=== PATIENT | male | born 1995 | race Caucasian/White ===

== ENCOUNTER 2018-02-03 20:20 | Emergency (ER) | payer BC ==
--- NOTE | 2018-02-03 20:34 | ER Report ---
History and Physical Time Seen By MD: 20:33 Hx. of Stated Complaint: PT STATES THAT HE WOKE UP THIS AM FEELING ILL. STARTED WITH DIARRHEA AND PROGRESSED TO VOMITING. TONIGHT HE HAS SOME SHARP PAIN IN HIS CHEST, DIARRHEA HAS RESOLVED, LAST VOMITED AT 1730. HPI/ROS CHIEF COMPLAINT: Abdominal pain chest pain HISTORY OF PRESENT ILLNESS: 20-year-old male patient presents to emergency room with complaint of abdominal pain and chest pain. Patient states this been going on since morning. States he woke up this morning he was having some abdominal pain. He had several bouts of diarrhea. He states the diarrhea resolved and then he started vomiting. Patient states that he's not been able to keep anything down other than small sips of water. Patient states that he felt feverish about 9:00 this evening and took 800 mg of ibuprofen. He has not taken any other medication today. Patient denies any shortness of breath. REVIEW OF SYSTEMS: Respiratory: No cough, no dyspnea. Cardiovascular: As noted above. Gastrointestinal: As noted above Musculoskeletal: No back pain. Allergies: Uncoded Allergies: mint (Allergy, Intermediate, throat swelling, 02/03/18) Home Meds Active Scripts Ondansetron (ZOFRAN ODT) 4 Mg Tab.rapdis, 4 MG PO Q6H Y for NAUSEA/VOMITING, # 20 TAB.ANNA Prov:DENISE CISSE 02/03/18 Past Medical/Surgical History Patient has a past medical history of urethral scar tissue, alcohol use. Patient has surgical history of urethral surgery. Reviewed Nurses Notes: Yes Hx Substance Use Disorder: No Hx Alcohol Use: Yes (SOCIAL DRINKER) Constitutional Vital Sign - Last 24 Hours 02/03/18 02/03/18 02/03/18 02/03/18 20:28 20:30 20:45 21:00 Temp 99.0 Pulse 101 104 96 97 Resp 16 14 12 16 B/P (MAP) 116/89 117/79 (92) 114/77 (89) Pulse Ox 94 94 95 92 O2 Delivery Room Air 02/03/18 02/03/18 02/03/18 02/03/18 21:21 21:30 21:45 22:00 Pulse 98 95 100 Resp 13 21 34 B/P (MAP) 116/76 (89) 129/87 (101) Pulse Ox 90 93 93 4/11/02/03/18 02/03/18 02/03/18 22:15 22:30 22:45 23:00 Pulse 98 93 95 92 Resp 9 17 23 7 B/P (MAP) 120/84 (96) Pulse Ox 92 92 92 91 Physical Exam General Appearance: The patient is alert, has no immediate need for airway protection and no current signs of toxicity. Respiratory: Chest is non tender, lungs are clear to auscultation. Cardiac: regular rate and rhythm Gastrointestinal: Abdomen is soft and tender, no masses, bowel sounds hypoactive. Musculoskeletal: Neck: Neck is supple and non tender. Extremities have full range of motion and are non tender. Skin: No rashes or lesions. DIFFERENTIAL DIAGNOSIS: After history and physical exam differential diagnosis was considered for nausea and vomiting including but not limited to gastroenteritis, gastritis, appendicitis, and medication side effect. Medical Decision Making Data Points Result Diagram: 02/03/18203702/03/182037 Laboratory Hematology Test 02/03/18 20:38 02/03/18 21:37 Red Blood Count 5.70 M/uL (4.00-5.60) Mean Corpuscular Volume 90.2 fL (80.0-96.0) Mean Corpuscular Hemoglobin 32.0 pg (26.0-33.0) Mean Corpuscular Hemoglobin Concent 35.4 g/dL (32.0-36.0) Red Cell Distribution Width 12.8 % (11.5-14.5) Mean Platelet Volume 8.4 fL (7.2-11.1) Neutrophils (%) (Auto) 90.0 % (39.4-72.5) Lymphocytes (%) (Auto) 3.3 % (17.6-49.6) Monocytes (%) (Auto) 5.7 % (4.1-12.4) Eosinophils (%) (Auto) 0.4 % (0.4-6.7) Basophils (%) (Auto) 0.6 % (0.3-1.4) Nucleated RBC Relative Count (auto) 0.0 /100WBC Neutrophils # (Auto) 11.4 K/uL (2.0-7.4) Lymphocytes # (Auto) 0.4 K/uL (1.3-3.6) Monocytes # (Auto) 0.7 K/uL (0.3-1.0) Eosinophils # (Auto) 0.1 K/uL (0.0-0.5) Basophils # (Auto) 0.1 K/uL (0.0-0.1) Nucleated RBC Absolute Count (auto) 0.00 K/uL Sodium Level 140 mmol/L (137-145) Potassium Level 3.4 mmol/L (3.5-5.0) Chloride Level 102 mmol/L (98-107) Carbon Dioxide Level 20 mmol/L (22-30) Blood Urea Nitrogen 19 mg/dl (9-21) Creatinine 0.90 mg/dl (0.66-1.25) Glomerular Filtration Rate Calc > 60.0 Random Glucose 117 mg/dl (75-110) Calcium Level 9.3 mg/dl (8.4-10.2) Total Bilirubin 1.5 mg/dl (0.2-1.3) Aspartate Amino Transf (AST/SGOT) 22 U/L (0-35) Alanine Aminotransferase (ALT/SGPT) 26 U/L (0-56) Alkaline Phosphatase 106 U/L (0-126) Troponin I < 0.012 ng/ml C-Reactive Protein 1.2 mg/dl (<1.0) Total Protein 7.5 gm/dl (6.3-8.2) Albumin 4.4 g/dl (3.5-5.0) Amylase Level 72 U/L (0-110) Lipase 38 U/L (23-300) Urine Color Yellow Urine Clarity Clear Urine pH 5.0 pH (4.8-9.5) Urine Specific [place] 1.029 Urine Protein Negative mg/dL (NEGATIVE) Urine Glucose (UA) Negative mg/dL (NEGATIVE) Urine Ketones 80 mg/dL (NEGATIVE) Urine Blood Negative (NEGATIVE) Urine Nitrite Negative (NEGATIVE) Urine Bilirubin Negative (NEGATIVE) Urine Urobilinogen Negative mg/dL (0.2-1.9) Urine Leukocyte Esterase Negative (NEGATIVE) Urine RBC <1 /HPF (0-2/HPF) Urine WBC 1 /HPF (0-5/HPF) Urine Squamous Epithelial Cells Few /LPF (</=FEW) Urine Bacteria Negative /HPF (NONE-FEW) Urine Mucus Few /HPF (NONE-FEW) Chemistry Test 02/03/18 20:38 02/03/18 21:37 White Blood Count 12.7 k/uL (4.5-11.0) Red Blood Count 5.70 M/uL (4.00-5.60) Hemoglobin 18.2 g/dL (14.0-18.0) Hematocrit 51.4 % (42.0-52.0) Mean Corpuscular Volume 90.2 fL (80.0-96.0) Mean Corpuscular Hemoglobin 32.0 pg (26.0-33.0) Mean Corpuscular Hemoglobin Concent 35.4 g/dL (32.0-36.0) Red Cell Distribution Width 12.8 % (11.5-14.5) Platelet Count 237 K/uL (150-450) Mean Platelet Volume 8.4 fL (7.2-11.1) Neutrophils (%) (Auto) 90.0 % (39.4-72.5) Lymphocytes (%) (Auto) 3.3 % (17.6-49.6) Monocytes (%) (Auto) 5.7 % (4.1-12.4) Eosinophils (%) (Auto) 0.4 % (0.4-6.7) Basophils (%) (Auto) 0.6 % (0.3-1.4) Nucleated RBC Relative Count (auto) 0.0 /100WBC Neutrophils # (Auto) 11.4 K/uL (2.0-7.4) Lymphocytes # (Auto) 0.4 K/uL (1.3-3.6) Monocytes # (Auto) 0.7 K/uL (0.3-1.0) Eosinophils # (Auto) 0.1 K/uL (0.0-0.5) Basophils # (Auto) 0.1 K/uL (0.0-0.1) Nucleated RBC Absolute Count (auto) 0.00 K/uL Glomerular Filtration Rate Calc > 60.0 Calcium Level 9.3 mg/dl (8.4-10.2) Total Bilirubin 1.5 mg/dl (0.2-1.3) Aspartate Amino Transf (AST/SGOT) 22 U/L (0-35) Alanine Aminotransferase (ALT/SGPT) 26 U/L (0-56) Alkaline Phosphatase 106 U/L (0-126) Troponin I < 0.012 ng/ml C-Reactive Protein 1.2 mg/dl (<1.0) Total Protein 7.5 gm/dl (6.3-8.2) Albumin 4.4 g/dl (3.5-5.0) Amylase Level 72 U/L (0-110) Lipase 38 U/L (23-300) Urine Color Yellow Urine Clarity Clear Urine pH 5.0 pH (4.8-9.5) Urine Specific [place] 1.029 Urine Protein Negative mg/dL (NEGATIVE) Urine Glucose (UA) Negative mg/dL (NEGATIVE) Urine Ketones 80 mg/dL (NEGATIVE) Urine Blood Negative (NEGATIVE) Urine Nitrite Negative (NEGATIVE) Urine Bilirubin Negative (NEGATIVE) Urine Urobilinogen Negative mg/dL (0.2-1.9) Urine Leukocyte Esterase Negative (NEGATIVE) Urine RBC <1 /HPF (0-2/HPF) Urine WBC 1 /HPF (0-5/HPF) Urine Squamous Epithelial Cells Few /LPF (</=FEW) Urine Bacteria Negative /HPF (NONE-FEW) Urine Mucus Few /HPF (NONE-FEW) Urinalysis Test 02/03/18 21:37 Urine Color Yellow Urine Clarity Clear Urine pH 5.0 pH (4.8-9.5) Urine Specific [place] 1.029 Urine Protein Negative mg/dL (NEGATIVE) Urine Glucose (UA) Negative mg/dL (NEGATIVE) Urine Ketones 80 mg/dL (NEGATIVE) Urine Blood Negative (NEGATIVE) Urine Nitrite Negative (NEGATIVE) Urine Bilirubin Negative (NEGATIVE) Urine Urobilinogen Negative mg/dL (0.2-1.9) Urine Leukocyte Esterase Negative (NEGATIVE) Urine RBC <1 /HPF (0-2/HPF) Urine WBC 1 /HPF (0-5/HPF) Urine Squamous Epithelial Cells Few /LPF (</=FEW) Urine Bacteria Negative /HPF (NONE-FEW) Urine Mucus Few /HPF (NONE-FEW) EKG/Imaging EKG Interpretation 12 lead EKG: Rhythm: normal sinus rhythm with a ventricular rate of 100 bpm. [place]: normal QRS: normal ST segments: normal Imaging ACUTE ABDOMEN SERIES 3 VIEW HISTORY: Abdominal pain, epigastric, for one day. Diarrhea and fever. COMPARISON: None. TECHNIQUE: PA upright view of the chest, AP supine and AP upright views of the abdomen. Chest: The lungs are clear. The cardiac and mediastinal silhouettes are within normal limits. Bones and soft tissues are unremarkable. Abdomen: The distribution of bowel gas is normal, with bowel in all four quadrants as well as centrally. There are few nonspecific air-fluid levels. No free air. No dilated loops of bowel. No acute osseous abnormality. IMPRESSION: 1. No acute cardiopulmonary process. 2. Unremarkable bowel gas pattern without obstruction. Report Dictated By: Francesca Lao at 02/03/2018 11:03 PM Report E-Signed By: Francesca Lao at 02/03/2018 11:04 PM ED Course/Re-evaluation ED Course Patient was admitted and examined, history and physical were obtained. Differential diagnoses were considered. I examination the lungs are clear, heart regular, abdomen was soft nontender. Patient did have hypoactive bowel sounds. A CBC, CMP, get abdominal x-ray were done. Patient did have a slightly elevated white count of 12,000, with left shift. I believe this likely secondary to de-margination caused by the vomiting. I discussed this with the patient. We did give him dose Zofran here in the emergency room as well as a liter of normal saline. Patient states he's feeling better at this time. We will go ahead and discharge him home. He is to follow-up with his primary care provider in the next week. He will be discharged home with couple of Zofran him through [facility] as well as a prescription sent him to use his pharmacy. Patient verbalized understanding and agreement with plan. Decision to Disposition Date: Feb 03, 2018 Decision to Disposition Time: 22:35 Depart Departure Latest Vital Signs Vital Signs Date Time Temp Pulse Resp B/P (MAP) Pulse Ox O2 Delivery O2 Flow Rate FiO2 02/03/18 23:00 92 7 120/84 (96) 91 02/03/18 20:28 99.0 Room Air Impression: Primary Impression: Gastroenteritis Condition: Improved Disposition: HOME OR SELF-CARE New Scripts Ondansetron (ZOFRAN ODT) 4 Mg Tab.rapdis 4 MG PO Q6H Y for NAUSEA/VOMITING, #20 TAB.ANNA Prov: DENISE CISSE 02/03/18 Patient Instructions: Gastroenteritis (ED) Additional Instructions: Increase fluid intake. Clear liquid diet for the next 24-48 hours. After that you may advance diet as tolerated starting with complex carbohydrates ; rice, bread or pasta. Follow up with your primary care provider in the next week. Return to the ER if condition worsens. You may take over the counter Pepto Bismol as needed for cramping, diarrhea and discomfort. DENISE CISSE [facility] Feb 03, 2018 20:34
--- NOTE | 2018-02-03 20:44 | EKG ---
FACILITY: [facility] - [place] PATIENT NAME: CHEYENNE COBOS : [id number] MR: [id number] V: [id number] EXAM DATE: ORDERING PHYSICIAN: KELSEY CAZARES TECHNOLOGIST: KEEGAN Test Reason : CP Blood Pressure : / mmHG Vent. Rate : 100 BPM Atrial Rate : 100 BPM P-R Int : 130 ms QRS Dur : 080 ms QT Int : 346 ms P-R-T Axes : 057 072 051 degrees QTc Int : 446 ms Normal sinus rhythm Possible Left atrial enlargement Possible Anterior infarct , age undetermined Abnormal ECG No previous ECGs available Confirmed by MARTÍN MORSE ([id number]) on 02/04/2018 6:33:42 AM Referred By: Confirmed By:MARTÍN MORSE
[2018-02-03] MEDS ORDERED: NS(*) 0.9% 1000 ML BAG 1,000 ML IV ONE (20:56)
[2018-02-03] MEDS ORDERED: ONDANSETRON 4 MG/2 ML VIAL IVP ONE (21:00)
[2018-02-03 21:03] LABS: PLATELET COUNT, AUTOMATED 237 K/uL (150-450)
[2018-02-03] MEDS ORDERED: ONDA4TAB PO (22:36)
[2018-02-03 23:00] VITALS: BP 120/84
--- NOTE | 2018-02-03 23:08 | RADIOLOGY IMAGING REPORT ---
FACILITY: [facility] PATIENT NAME: Avel Steen : 1995 MR: [id number] V: [id number] EXAM DATE: ORDERING PHYSICIAN: DENISE CISSE TECHNOLOGIST: Location: [facility] [place] Patient: Avel Steen : 1995 Visit/Account:[id number] Date of Sevice: 02/03/2018 ACUTE ABDOMEN SERIES 3 VIEW HISTORY: Abdominal pain, epigastric, for one day. Diarrhea and fever. COMPARISON: None. TECHNIQUE: PA upright view of the chest, AP supine and AP upright views of the abdomen. Chest: The lungs are clear. The cardiac and mediastinal silhouettes are within normal limits. Bones a nd soft tissues are unremarkable. Abdomen: The distribution of bowel gas is normal, with bowel in all four quadrants as well as central ly. There are few nonspecific air-fluid levels. No free air. No dilated loops of bowel. No acute osse ous abnormality. IMPRESSION: 1. No acute cardiopulmonary process. 2. Unremarkable bowel gas pattern without obstruction. Report Dictated By: Francesca Lao at 02/03/2018 11:03 PM Report E-Signed By: Francesca Lao at 02/03/2018 11:04 PM WSN:[id number]
[2018-02-03] MEDS ORDERED: ONDANSETRON 4 MG ODT TH SL ONE (23:10)
== END 2018-02-03 23:24 | disposition home or self-care (01) ==
LOC: ER 20:55
DX: K52.9 Noninfective gastroenteritis and colitis, unspecified (principal); R94.31 Abnormal electrocardiogram [ECG] [EKG]
CPT/HCPCS: 74022; 81001; 82150; 83690; 84484; 85025; 86140; 93005; 96361; 96374; 99284; J2405; J7030; S0119; 82040; 82247; 82310; 82374; 82435; 82565; 82947; 84075; 84132; 84155; 84295; 84450; 84460; 84520